=== PATIENT | male | born 1965 | race African-American/Black ===

== ENCOUNTER 2019-03-24 14:06 | Inpatient (IN) | payer SELFPAY ==
[~2019-03-24] VITALS: Ht 162.6 cm; Wt 54.9 kg
[2019-03-24 17:20] LABS: BASOPHILS % 0.5 % (0.0-2.0); EOSINOPHILS % 0.8 % (0.0-5.0); HEMOGLOBIN. 12.6 g/dL (14.0-18.0); LYMPHOCYTES % 20.1 % (20.0-50.0); MEAN CORPUSCULAR HEMOGLOBIN 34.8 pg (28.0-32.0); MEAN CORPUSCULAR VOLUME 99.2 fL (80.0-94.0); MEAN PLATELET VOLUME 8.2 fl (7.4-10.4); MONOCYTES % 8.9 % (2.0-8.0); NEUTROPHILS % 69.7 % (40.0-76.0); PLATELET 195 x1000/uL (130-400); RED BLOOD CELL COUNT 3.63 mill/uL (4.7-6.1); RED CELL DISTRIBUTION WIDTH 13.2 % (11.6-14.6)
[2019-03-24 17:23] LABS: CHLORIDE 107 mEq/L (98-107)
[2019-03-24 17:24] LABS: *AMPHETAMINES SCREEN URINE NEGATIVE (NEGATIVE); *BARBITURATES SCREEN URINE NEGATIVE (NEGATIVE); *BENZODIAZEPINES SCREEN URINE NEGATIVE (NEGATIVE); *COCAINE SCREEN URINE NEGATIVE (NEGATIVE)
[2019-03-24 17:26] LABS: ETHANOL BLOOD < 10 mg/dL
[2019-03-24 17:26] LABS: CANNABINOID URINE SCREEN NEGATIVE (NEGATIVE); METHADONE URINE SCREEN NEGATIVE (NEGATIVE); OPIATES URINE SCREEN NEGATIVE (NEGATIVE); PHENCYCLIDINE URINE SCREEN NEGATIVE (NEGATIVE)
[2019-03-24 17:27] LABS: PARTIAL THROMBOPLASTIN TIME 24.7 sec (23.4-31.0); PROTHROMBIN TIME 10.4 sec (9.6-11.0)
[2019-03-24] MEDS ORDERED: MORPHINE SULFATE 4 MG/ML CPJ (NOT FOR IM USE) IV STA (17:47)
[2019-03-24] MEDS ORDERED: ONDANSETRON HCL 4MG/2ML INJ IV STA (17:47)
[2019-03-24] MEDS ORDERED: ASPIRIN 81MG TABLET PO ONE (18:00)
[2019-03-24] MEDS ORDERED: NITROGLYCERIN OINT 1GM/INCH UDPKT TD ONE (18:00)
[2019-03-24] MEDS ORDERED: ACETAMINOPHEN 325MG TABLET PO PRN (18:30)
[2019-03-24] MEDS ORDERED: KETOROLAC 30MG/ML VIAL IV PRN (18:30)
[2019-03-24] MEDS ORDERED: ONDANSETRON HCL 4MG/2ML INJ IV PRN (18:30)
[2019-03-24 21:20] VITALS: BP 159/93
[2019-03-24 22:40] VITALS: BP 159/93
[2019-03-24] MEDS: METOPROLOL TARTRATE 25MG TABLET PO SCH (23:22)
[2019-03-24] MEDS: AMLODIPINE 5MG TABLET PO SCH (23:22)
[2019-03-25] VITALS (7 sets, daily range): BP systolic 125–152; BP diastolic 64–88
[2019-03-25] MEDS ORDERED: ASPIRIN 81MG TABLET PO SCH (09:00)
[2019-03-25] MEDS: AMLODIPINE 5MG TABLET PO SCH (09:32)
[2019-03-25] MEDS: METOPROLOL TARTRATE 25MG TABLET PO SCH (09:33)
[2019-03-25 10:07] LABS: BASOPHILS % 0.5 % (0.0-2.0); EOSINOPHILS % 1.2 % (0.0-5.0); LYMPHOCYTES % 19.7 % (20.0-50.0); MEAN CORPUSCULAR VOLUME 99.6 fL (80.0-94.0); MEAN PLATELET VOLUME 8.5 fl (7.4-10.4); NEUTROPHILS % 69.6 % (40.0-76.0); PLATELET 192 x1000/uL (130-400); RED BLOOD CELL COUNT 3.71 mill/uL (4.7-6.1); RED CELL DISTRIBUTION WIDTH 13.2 % (11.6-14.6)
[2019-03-25 10:14] LABS: CHLORIDE 107 mEq/L (98-107)
[2019-03-25 12:30] LABS: CLARITY URINE CLEAR (CLEAR); COLOR URINE YELLOW (YELLOW); KETONES URINE NEGATIVE (NEGATIVE); LEUKOCYTE ESTERASE URINE NEGATIVE (NEGATIVE); NITRITE URINE NEGATIVE (NEGATIVE); OCCULT BLOOD URINE NEGATIVE (NEGATIVE); PH URINE 5.5 (4.5-8.0); PROTEIN URINE NEGATIVE (NEGATIVE); SPECIFIC GRAVITY URINE 1.025 (1.005-1.030)
[2019-03-25] MEDS ORDERED: ATORVASTATIN CALCIUM 40MG TABLET PO SCH (21:00)
== END 2019-03-25 21:14 | disposition home or self-care (01) | DRG 203 ==
LOC: ER 15:28 → 5WST 17:49 → EDBEDREQ 18:11 → EDBEDREQTM 18:11 → ENRESERV 20:18 → EDBEDREQTM 20:32 → EDBEDREQ 21:14
PROVIDERS: ADMIT Internal Medicine; ATTEND Internal Medicine
DX: R07.89 Other chest pain (principal); D64.9 Anemia, unspecified; I10 Essential (primary) hypertension; E78.5 Hyperlipidemia, unspecified; Z87.891 Personal history of nicotine dependence
CPT/HCPCS: 36415; 71045; 80048; 80061; 80305; 80320; 83880; 84443; 84484; 93005; 93306; 93970; 99285; J2270; J2405; G0480